=== PATIENT | male | born 1970 | race Caucasian/White ===

== ENCOUNTER 2016-07-14 16:43 | Emergency (ER) | payer OTHER ==
[~2016-07-14] VITALS: Ht 167.6 cm; Wt 67.0 kg
[2016-07-14 17:06] VITALS: Ht 167.6 cm; Wt 67.0 kg
--- NOTE | 2016-07-14 17:26 | ERD ---
ER Documentation Chief Complaint Date/Time DATE: 07/14/16 TIME: 17:24 Chief Complaint GENERALIZED BODY PAIN, FEVER AND COUGH X 5 DAYS ROS All systems reviewed and are negative except as per history of present illness. Medications Home Meds No Active Prescriptions or Reported Meds Allergies Allergies: Coded Allergies: No Known Allergy (Unverified , 11/18/11) PMhx/Soc History of Surgery: No Anesthesia Reaction: No Hx Neurological Disorder: Yes (HX HEADACHE) Hx Respiratory Disorders: No Hx Cardiac Disorders: No Hx Psychiatric Problems: No Hx Miscellaneous Medical Probl: No Hx Alcohol Use: No Hx Substance Use: No Hx Tobacco Use: No Physical Exam Vitals Vital Signs Date Time Temp Pulse Resp B/P Pulse Ox O2 Delivery O2 Flow Rate FiO2 07/14/16 17:06 99.8 94 19 130/74 96 Physical Exam Const: [] Head: Atraumatic Eyes: Normal Conjunctiva ENT: Normal External Ears, Nose and Mouth. Neck: Full range of motion..~ No meningismus. Resp: Clear to auscultation bilaterally Cardio: Regular rate and rhythm, no murmurs Abd: Soft, non tender, non distended. Normal bowel sounds Skin: No petechiae or rashes Back: No midline or flank tenderness Ext: No cyanosis, or edema Neur: Awake and alert Psych: Normal Mood and Affect Departure Diagnosis: Primary Impression: Influenza Additional Impressions: Myalgia Headache Condition: Stable Additional Instructions: No mas mejor en 2-3 manzano, regresar. Mas peor en 24 horas, regresear rapidamente. Ir a doctor primario in 5-7 manzano. Usar instrucciones cuando joy medicamento. PADMAJA LARA PA-C Jul 14, 2016 17:26
[2016-07-14] MEDS ORDERED: NAPR-260 PO (17:28)
== END 2016-07-14 17:40 | disposition home or self-care (01) ==
LOC: E/R 16:43
DX: J11.1 Influenza due to unidentified influenza virus with other respiratory manifestations (principal); M79.1 Myalgia; R51 Headache
CPT/HCPCS: 99283

== ENCOUNTER 2016-07-19 10:15 | Emergency (ER) | payer OTHER ==
[~2016-07-19] VITALS: Wt 74.0 kg
[~2016-07-19 10:15] MED LIST: NAPR-260 PO
[2016-07-19] MEDS ORDERED: ONDANSETRON 4 MG INJ IV STA (10:38)
[2016-07-19] MEDS ORDERED: morphine 4 MG/ML VIAL IV STA (10:38)
[2016-07-19 11:30] LABS: ADD UMIC NO; URINE BILIRUBIN (Dip) NEGATIVE (NEGATIVE); URINE BLOOD (Dip) NEGATIVE (NEGATIVE); URINE COLOR LT. YELLOW (YELLOW); URINE GLUCOSE (Dip) NEGATIVE (NEGATIVE); URINE KETONES (Dip) NEGATIVE (NEGATIVE); URINE LEUKOCYTE ESTERASE (Dip) NEGATIVE (NEGATIVE); URINE NITRITE (Dip) NEGATIVE (NEGATIVE); URINE TOTAL PROTEIN (Dip) NEGATIVE (NEGATIVE); URINE UROBILINOGEN (Dip) 0.2 E.U./dL (0.1-1.0)
[2016-07-19 11:33] LABS: ALBUMIN 3.6 g/dl (3.3-4.9); BASOPHILS % 0.2 % (0.0-2.0); EOSINOPHILS # 0.4 10^3/ul (0.0-0.5); EOSINOPHILS % 3.9 % (0.0-7.0); HEMATOCRIT 38.3 % (42.0-52.0); HEMOGLOBIN 13.2 g/dl (14.0-18.0); LYMPHOCYTES % 9.4 % (15.0-51.0); MEAN CORPUSCULAR HEMOGLOBIN 30.1 pg (29.0-33.0); MEAN CORPUSCULAR HGB CONC 34.4 g/dl (32.0-37.0); MEAN CORPUSCULAR VOLUME 87.5 fl (82.0-101.0); MEAN PLATELET VOLUME 7.4 fl (7.4-10.4); MONOCYTE # 0.7 10^3/ul (0.3-0.9); MONOCYTES % 6.5 % (0.0-11.0); NEUTROPHIL # 8.6 10^3/ul (1.6-7.5); PLATELET COUNT 544 10^3/UL (140-440); RED BLOOD COUNT 4.38 10^6/ul (4.70-6.10); RED CELL DISTRIBUTION WIDTH 13.9 % (11.5-14.5); UNCORRECTED WBC 10.8 10^3/ul (4.8-10.8); WHITE BLOOD COUNT 10.8 10^3/ul (4.8-10.8)
[2016-07-19 11:34] LABS: POTASSIUM 4.4 mmol/L (3.5-5.1)
[2016-07-19 11:36] LABS: ALBUMIN/GLOBULIN RATIO 0.78; BILIRUBIN,INDIRECT 0.1 mg/dl (0-1.1); BILIRUBIN,TOTAL 0.1 mg/dl (0.2-1.3); CREATININE 1.01 mg/dl (0.61-1.24); TOTAL PROTEIN 8.2 g/dl (6.1-8.1)
[2016-07-19 11:37] LABS: CALCIUM 9.3 mg/dl (8.4-10.2); CONDITION 1
[2016-07-19] MEDS ORDERED: SOD CHLORIDE 0.9% 100 ML ONE (12:06)
[2016-07-19] MEDS ORDERED: IOHEXOL 300MG/ML 150 ML BTL ONE (12:06)
--- NOTE | 2016-07-19 12:39 | RADRPT ---
PROCEDURE: CT Abdomen and Pelvis with contrast. CLINICAL INDICATION: Generalized abdominal pain with fevers. TECHNIQUE: CT scan of the abdomen and pelvis with contrast was performed on a multi-detector high- resolution CT scanner. The patient was scanned following the uncomplicated intravenous administrati on of 100 cc of Omnipaque 300. Coronal and sagittal reformatted images were obtained from the axial source images. Images were reviewed on a high-resolution PACS workstation. The total exam CTDI equa ls 7.46 mGy and the total exam DLP equals 423.19 mGy-cm. One or more of the following dose reduction techniques were used: Automated exposure control. Adjustment of the mA and/or kV according to patient size. Use of iterative reconstruction technique. COMPARISON: None. FINDINGS: CT abdomen: The lung bases are remarkable for mild pleural parenchymal scarring. The heart size is normal, with out pericardial thickening or effusion. The liver is normal in size and density without focal mass or intrahepatic biliary dilatation. The spleen is normal in size and homogeneous in density. The s tomach is partially collapsed, but is grossly unremarkable. The pancreas as visualized is normal. The gallbladder and biliary tree are unremarkable and there is no evidence for biliary dilatation. The adrenal glands are symmetric and normal. The kidneys are symmetrically unremarkable as well. N o renal calculus or obstructive uropathy or mass lesion is seen. The aorta is of normal caliber. There is no retroperitoneal lymphadenopathy. The prasad hepatis roxanne on is clear. The bowel and mesentery, as visualized, are equally unremarkable. CT pelvis: The small bowel loops situated within the pelvis are unremarkable. The pelvic organs are normal. T he pelvic sidewalls and inguinal regions are clear. The sigmoid colon and rectum are unremarkable. No mass, lymphadenopathy, or free fluid is seen. No acute inflammation is seen. The bladder is no rmal. The surrounding osseous structures are unremarkable. No osteolytic or osteoblastic lesion is detected. IMPRESSION: 1. No mass, lymphadenopathy, or focal acute inflammatory process is identified. 2. The appendix is not definitely visualized; however no pericecal inflammatory changes are seen to suggest appendicitis. RPTAT: BB .Eufemia Mcdonnell MD, MD Date Time Electronically viewed and signed by .Eufemia Mcdonnell MD, MD on 07/19/2016 12:39 .O/
[2016-07-19] MEDS ORDERED: FAMO-18 PO (12:43)
[2016-07-19] MEDS ORDERED: ACET500C5 PO (12:43)
--- NOTE | 2016-07-19 12:46 | ERD ---
ER Documentation Chief Complaint Date/Time DATE: 07/19/16 TIME: 12:44 Chief Complaint FEVER AND ABDOMINAL PAIN FOR THE PAST FEW DAYS. NO DISTRESS. HPI This 45-year-old male complains of generalized abdominal pain for last 3 days or so. He has a subjective fever. Fever triage. Denies nausea vomiting, diarrhea in his bowel habits, urinary complaints. He does not localize the pain he describes it as diffuse. Crampy slightly burning. ROS All systems reviewed and are negative except as per history of present illness. Medications Home Meds Active Scripts Famotidine* (Pepcid*) 20 Mg Tablet, 20 MG PO BID for 10 Days, #20 TAB Prov:JIMI OZUNA MD 07/19/16 Acetaminophen* (Tylophen*) 500 Mg Capsule, 1 CAP PO Q6H Y for PAIN AND OR ELEVATED TEMP, #20 CAP Prov:JIMI OZUNA MD 07/19/16 Naproxen* (Naprosyn*) 500 Mg Tablet, 500 MG PO BID Y for PAIN AND/OR INFLAMMATION, #20 TAB Prov:PADMAJA LARA PA-C 07/14/16 Allergies Allergies: Coded Allergies: No Known Allergy (Unverified , 11/18/11) PMhx/Soc Medical and Surgical Hx: pt denies Medical Hx, pt denies Surgical Hx History of Surgery: No Anesthesia Reaction: No Hx Neurological Disorder: Yes (HX HEADACHE) Hx Respiratory Disorders: No Hx Cardiac Disorders: No Hx Psychiatric Problems: No Hx Miscellaneous Medical Probl: No Hx Alcohol Use: No Hx Substance Use: No Hx Tobacco Use: No Smoking Status: Never smoker Physical Exam Vitals Vital Signs Date Time Temp Pulse Resp B/P Pulse Ox O2 Delivery O2 Flow Rate FiO2 07/19/16 10:19 98.8 102 20 115/62 98 Physical Exam Const: [] Head: Atraumatic Eyes: Normal Conjunctiva ENT: Normal External Ears, Nose and Mouth. Neck: Full range of motion..~ No meningismus. Resp: Clear to auscultation bilaterally Cardio: Regular rate and rhythm, no murmurs Abd: Soft, non tender, non distended. Normal bowel sounds Skin: No petechiae or rashes Back: No midline or flank tenderness Ext: No cyanosis, or edema Neur: Awake and alert Psych: Normal Mood and Affect Result Diagram: 07/19/16 1047 07/19/16 1047 Results 24 hrs Laboratory Tests Test 07/19/16 10:47 Alanine Aminotransferase (ALT/SGPT) 130IU/L Albumin 3.6g/dl Albumin/Globulin Ratio 0.78 Alkaline Phosphatase 233IU/L Anion Gap 18 Aspartate Amino Transf (AST/SGOT) 46IU/L Basophils # 0.010^3/ul Basophils % 0.2% Blood Urea Nitrogen 14mg/dl Calcium Level 9.3mg/dl Carbon Dioxide Level 27mmol/L Chloride Level 99mmol/L Creatinine 1.01mg/dl Direct Bilirubin 0.00mg/dl Eosinophils # 0.410^3/ul Eosinophils % 3.9% Globulin 4.60g/dl Glucose Level 110mg/dl Hematocrit 38.3% Hemoglobin 13.2g/dl Indirect Bilirubin 0.1mg/dl Lipase 100U/L Lymphocytes # 1.010^3/ul Lymphocytes % 9.4% Mean Corpuscular Hemoglobin 30.1pg Mean Corpuscular Hemoglobin Concent 34.4g/dl Mean Corpuscular Volume 87.5fl Mean Platelet Volume 7.4fl Monocytes # 0.710^3/ul Monocytes % 6.5% Neutrophils # 8.610^3/ul Neutrophils % 80.0% Nucleated Red Blood Cells # 0.010^3/ul Nucleated Red Blood Cells % 0.0/100WBC Platelet Count 76324^3/UL Potassium Level 4.4mmol/L Red Blood Count 4.3810^6/ul Red Cell Distribution Width 13.9% Sodium Level 140mmol/L Total Bilirubin 0.1mg/dl Total Protein 8.2g/dl Urine Bilirubin NEGATIVE Urine Clarity CLEAR Urine Color LT. YELLOW Urine Glucose NEGATIVE% Urine Hemoglobin NEGATIVE Urine Ketones NEGATIVE Urine Leukocyte Esterase NEGATIVE Urine Nitrite NEGATIVE Urine Specific [place] 1.015 Urine Total Protein NEGATIVE Urine Urobilinogen 0.2 E.U./dL Urine pH 6.0 White Blood Count 10.810^3/ul Current Medications Medications (Trade) Dose Ordered Sig/Yoli Route PRN Reason Start Time Stop Time Status Last Admin Dose Admin Morphine Sulfate (morphine) 4 mg ONCE STAT IV 07/19/16 10:38 07/19/16 10:39 DC 07/19/16 10:44 Ondansetron HCl (Zofran Inj) 4 mg ONCE STAT IV 07/19/16 10:38 07/19/16 10:39 DC 07/19/16 10:44 IV Flush 10 ml 10 ml STK-MED ONCE .ROUTE 07/19/16 12:06 07/19/16 12:07 DC 07/19/16 12:19 Sodium Chloride (NS) 100 ml @ ud STK-MED ONCE .ROUTE 07/19/16 12:06 07/19/16 12:07 DC 07/19/16 12:23 Iohexol (Omnipaque 300mg/ ml) 150 ml STK-MED ONCE .ROUTE 07/19/16 12:06 07/19/16 12:07 DC 07/19/16 12:23 Procedures/MDM CBC shows thrombocytosis elevated hemoglobin slightly but no leukocytosis. CMP shows mild transaminitis and lipase is normal. Renal function is normal. Urine is negative for blood, leukocytes, nitrates, glucose. Patient was given morphine 4 g IV and Zofran 4 mg IV, and Pepcid [address] abdomen pelvis with IV contrast which shows no periappendiceal seal inflammatory changes although appendix is not visualized. There is no evidence of abscess, obstruction or acute abnormalities noted on CT scan. Patient had minimal tenderness on serial exam. Patient presents with generalized abdominal pain for 3 days subject fevers but no measured fevers. No current signs or symptoms to suggest appendicitis, pancreatitis, acute abdomen, aortic disease, ischemic bowel, peritonitis, surgical abdomen. He may have gastritis or viral illness. I am recommending Tylenol and Pepcid and further observation at home. Patient is advised to follow-up in the next 8-12 hours for measured fevers, blood, vomiting, new or worsening symptoms otherwise with primary doctor this week. Departure Diagnosis: Primary Impression: Abdominal pain Abdominal location: generalized Qualified Code: R10.84 - Generalized abdominal pain Condition: Stable Patient Instructions: Abdominal Pain Additional Instructions: Examines normal hoy. Cheque otro vez con russell doctor primario en el proximo manzano or regresa AQUI para mas o nueva simptomas EN 1 LUPE LAITH,JIMI Woody MD Jul 19, 2016 12:46
[2016-07-19 13:00] VITALS: BP 108/72; PULSE 78; RESP 18; TEMP 98.3
[2016-07-19] MEDS ORDERED: FAMOTIDINE 20 MG INJ IV ONE (13:00)
== END 2016-07-19 13:03 | disposition home or self-care (01) ==
LOC: FTE 10:15
DX: R10.84 Generalized abdominal pain (principal)
CPT/HCPCS: 36415; 74177; 80053; 81003; 83690; 85025; 96374; 96375; 99285; J2270; J2405; Q9967

== ENCOUNTER 2017-06-20 01:14 | Emergency (ER) | payer OTHER ==
[~2017-06-20] VITALS: Ht 172.7 cm; Wt 67.3 kg
[~2017-06-20 01:14] MED LIST changes: +ACET500C5 PO; +FAMO-96 PO
[2017-06-20 01:34] VITALS: Ht 172.7 cm; Wt 67.3 kg
[2017-06-20] MEDS ORDERED: IBUP800T25 PO (04:39)
--- NOTE | 2017-06-20 04:42 | ERD ---
ER Documentation Chief Complaint Chief Complaint [place], bodyaches x3days. Denies fever, chills, cough HPI Very pleasant otherwise healthy 46-year-old male who presents with diffuse myalgias, arthralgias and headache for approximately 3 days. The patient does describe subjective chills. No fevers. His headache is bitemporal, throbbing, gradual in onset and similar to headaches in the past. He denies any nausea or vomiting, rash, neck stiffness, no chest pain or abdominal pain. He is unsure if he had his flu vaccination this year. ROS All systems reviewed and are negative except as per history of present illness. Medications Home Meds Active Scripts Ibuprofen* (Motrin*) 800 Mg Tab, 800 MG PO Q6H Y for PAIN AND OR ELEVATED TEMP, #30 TAB Prov:DEVIKA GONSALEZ MD 06/20/17 Famotidine* (Pepcid*) 20 Mg Tablet, 20 MG PO BID for 10 Days, #20 TAB Prov:JIMI OZUNA MD 07/19/16 Acetaminophen* (Tylophen*) 500 Mg Capsule, 1 CAP PO Q6H Y for PAIN AND OR ELEVATED TEMP, #20 CAP Prov:JIMI OZUNA MD 07/19/16 Naproxen* (Naprosyn*) 500 Mg Tablet, 500 MG PO BID Y for PAIN AND/OR INFLAMMATION, #20 TAB Prov:PADMAJA LARA PA-C 07/14/16 Allergies Allergies: Coded Allergies: No Known Allergy (Unverified , 06/20/17) PMhx/Soc History of Surgery: No Anesthesia Reaction: No Hx Neurological Disorder: Yes (HX HEADACHE) Hx Respiratory Disorders: No Hx Cardiac Disorders: No Hx Psychiatric Problems: No Hx Miscellaneous Medical Probl: No Hx Alcohol Use: No Hx Substance Use: No Hx Tobacco Use: No FmHx Family History: No diabetes Physical Exam Vitals Vital Signs Date Time Temp Pulse Resp B/P Pulse Ox O2 Delivery O2 Flow Rate FiO2 06/20/17 01:34 98.1 68 18 119/74 100 Physical Exam General: Well developed, well nourished, no acute distress Head: Normocephalic, atraumatic. Eyes: Pupils equally reactive, EOM intact ENT: Moist mucous membranes Neck: Supple, no lymphadenopathy, posterior pharynx without swelling or exudates Respiratory: Lungs clear bilaterally, no distress Cardiovascular: RRR, no murmurs, rubs, or gallops Abdominal: Soft, non-tender, non-distended, no peritoneal signs : Deferred MSK: No edema, no unilateral swelling, 5/5 strength Neurologic: Alert and oriented, moving all extremities, normal speech, no focal weakness, no cerebellar signs, no meningismus Skin: No rash Psych: Normal mood Results 24 hrs Current Medications Medications (Trade) Dose Ordered Sig/Yoli Route PRN Reason Start Time Stop Time Status Last Admin Dose Admin Ibuprofen (Motrin) 800 mg ONCE ONCE PO 06/20/17 05:00 06/20/17 05:01 Procedures/MDM The patient's clinical presentation is very consistent with an acute viral syndrome. The patient's headache is unlikely related to serious etiology. The patient does not exhibit any clinical signs or symptoms, and has no risk factors to suggest headache etiology such as subarachnoid hemorrhage, acute vertebral or carotid dissection, intracranial mass, epidural, subdural hematoma, dural venous sinus thrombosis, giant cell arteritis, or pseudotumor cerebri. The patient has had headaches in the past with negative [employer] imaging. No indication for CT imaging. The patient does not exhibit any clinical signs or symptoms concerning for serious bacterial infection or systemic illness. Based on history and clinical exam findings the patient does not appear to have evidence of pneumonia, strep pharyngitis, urinary tract infection, bacteremia, sepsis, or meningitis. For these reasons I do not believe it is necessary to obtain laboratory testing or diagnostic imaging. I believe it would be appropriate for symptom control, and close outpatient primary care follow-up. The patient does not meet criteria for Tamiflu. Motrin provided. We discussed follow up with the patient's primary care doctor within 24 to 48 hours as needed. We also discussed return to the emergency room for worsening symptoms or worsening condition. Discharge Medications: Motrin Departure Diagnosis: Primary Impression: Viral syndrome Additional Impression: Headache Headache type: tension-type Headache chronicity pattern: chronic headache Intractability: not intractable Qualified Code: G44.229 - Chronic tension- type headache, not intractable Condition: Stable Patient Instructions: Self-Care for Headaches, Viral Syndrome (Adult) Referrals[facility] Usted se [place] hecho un examen mdico de control que le indica que no est en jim condicin que requiera tratamiento urgente en el Departamento de Emergencia. Un estudio ms profundo y el tratamiento de russell condicin pueden esperar sin ningn riesgo hasta que usted sea atendida/o en el consultorio de russell mdico o jim cl reinier. Es responsabilidad suya arreglar jim teddy para el seguimiento del kathie. MANEJO DE CONDICIONES NO URGENTES EN EL FUTURO 1) Si usted tiene un mdico de atencin primaria: Usted debera llamar a russell mdico de atencin primaria antes de venir al departamento de emergencia. Despus de las horas de consultorio, russell doctor o russell asociado/a est disponible por telfono. El mdico o enfermero de [place] en el servicio telefnico puede asesorarle por delia medio para atender el problema, o kathie contrario se puede programar jim teddy. 2) Si usted no tiene un mdico de atencin primaria: Llame al mdico o clnica de referencia que aparece abajo guy las horas de consultorio para hacer jim teddy para que le vean. CLINICAS: [facility] [phone] [facility] [phone] [facility] [phone] [facility] [place] [id number] [phone] [facility] [place] [id number] [phone] [facility]. [phone] [facility] () Usted se [place] hecho un examen mdico de control que le indica que no est en jim condicin que requiera tratamiento urgente en el Departamento de Emergencia. Un estudio ms profundo y el tratamiento de russell condicin pueden esperar sin ningn riesgo hasta que usted sea atendida/o en el consultorio de russell mdico o jim cl reinier. Es responsabilidad suya arreglar jim teddy para el seguimiento del kathie. MANEJO DE CONDICIONES NO URGENTES EN EL FUTURO 1) Si usted tiene un mdico de atencin primaria: Usted debera llamar a russell mdico de atencin primaria antes de venir al departamento de emergencia. Despus de las horas de consultorio, russell doctor o russell asociado/a est disponible por telfono. El mdico o enfermero de [place] en el servicio telefnico puede asesorarle por delia medio para atender el problema, o kathie contrario se puede programar jim teddy. 2) Si usted no tiene un mdico de atencin primaria: Llame al mdico o condado institucions de referencia que aparece abajo guy las horas de consultorio para hacer jim teddy para que le vean. SI USTED NO PUEDE PAGAR PARA HANH UN MEDICO puede ir a: [facility] [id number] [place] [address] [facility] [address] [place] [address] [facility] [address] [place] [address] [facility] [address] [place], [place] [id number] Additional Instructions: Llame al doctor MAANA y maxine jim TEDDY PARA DENTRO DE 2-3 ARREAGA.Dgale a la secretaria que nosotros le instruimos hacer esta teddy.Avise o llame si russell condicin se empeora antes de la teddy. Regresa aqui si peor o no mejor. Return sooner for fevers, worsening headache, neck stiffness, confusion. DEVIKA GONSALEZ MD Jun 20, 2017 04:42
[2017-06-20] MEDS ORDERED: IBUPROFEN 800 MG TAB PO ONE (05:00)
[2017-06-20 05:20] VITALS: BP 113/71; PULSE 62; RESP 17; TEMP 97.9
== END 2017-06-20 05:20 | disposition home or self-care (01) ==
LOC: FTE 01:14
DX: B34.9 Viral infection, unspecified (principal); G44.229 Chronic tension-type headache, not intractable
CPT/HCPCS: 99283